=== PATIENT | female | born 1935 | race Caucasian/White ===

== ENCOUNTER 2017-09-20 18:49 | Inpatient (IN) | payer OTHER, BC ==
[~2017-09-20] VITALS: Ht 152.4 cm; Wt 57.1 kg
--- NOTE | ~2017-09-20 | EKG ---
[address] [place] [address] ELECTROCARDIOGRAM REPORT Name: MOISES HAMMOND Room #: 207-P ADM IN M.R.#: [id number] Admission: 09/20/17 Attend Phys: Adeel Flores MD Discharge: Date of : 33 Report #: [id number] THIS REPORT FOR: //name// [facility] ED Test Date: 2017-09-20 Test Time: 19:46:56 Pat Name: MOISES HAMMOND Department: Room: Gender: F Senior Automation Engineer: laura : 1935 Requested By: Pancho Negro Order Number: [id number] MD: Teddy Sparks Measurements Intervals [place] Rate: 91 P: 97 PA: 235 QRS: 74 QRSD: 92 T: 9 QT: 394 QTc: 485 Interpretive Statements Sinus rhythm Prolonged PA interval Borderline T abnormalities Prolonged QT interval Compared to ECG 09/29/2008 08:32:54 First degree AV block now present T-wave abnormality now present Electronically Signed On 09-21-2017 7:52:19 CDT by Teddy Sparks [email or web address] <ELECTRONICALLY SIGNED> By: Teddy Sparks MD, [facility] 09/21/17 0752 1946 45 Teddy Sparks MD, [facility] /EPI
--- NOTE | ~2017-09-20 | HC ---
[facility] [place] [address] CONSULTATION Name: MOISES HAMMOND Room #: 207-P [facility] IN M.R.#: [id number] Admission: 09/20/17 Attend Phys: Adeel Flores MD Discharge: 09/21/17 Date of : 33 Report #: [id number] THIS REPORT FOR: //name// CC: Adeel Flores MD CHIEF COMPLAINT: Right proximal ureteral stone. HISTORY OF PRESENT ILLNESS: The patient is a delightful 82-year-old woman who is being seen today at the request of Dr. Flores for evaluation and management of a right proximal ureteral stone. Specifically, she developed flank pain and nausea yesterday and presented to the hospital. She denies prior history of kidney stones. While hospitalized, however, she has been pain free and required no pain medicine. ALLERGIES: None. ILLNESSES: Diverticulitis, noninsulin dependent diabetes, hypertension, COPD. MEDICATIONS: Spiriva HandiHaler, aspirin 81 mg daily, vitamin D3 400 units daily, Zocor 20 mg at bedtime, fenofibrate 160 mg daily, glimepiride 1 mg daily, metformin 500 mg b.i.d. SOCIAL HISTORY: She smokes a pack and a half of cigarettes a day. She does not drink. REVIEW OF SYSTEMS: No shortness of breath or chest pain. PHYSICAL EXAMINATION: VITAL SIGNS: Her temperature is 36.6, pulse 79, respirations 18, blood pressure 132/59. No respiratory distress. ABDOMEN: Soft, without masses. EXTREMITIES: Well perfused. LABORATORY DATA: White count 13,500, hemoglobin 10.3, hematocrit 30.8, platelets 294,000. Sodium 142, potassium 4.3, chloride 108, BUN 132, creatinine 1.8, calcium is 8.2. Urine is clear yellow, specific gravity is greater than 1.030, 2+ protein, 3+ blood. Microscopic 3-10 red cells, nitrites negative, leukocyte esterase negative, 0-[address] scan shows a 4.2 x 6 mm right proximal ureteral stone with [id number] hydronephrosis. Left kidney is unremarkable. IMPRESSION: Right renal calculus. PLAN: Recommend KUB, to consider if she is a candidate for lithotripsy. Certainly, this can be performed as an outpatient. Given the fact she has pain [address] [place] [address] CONSULTATION Name: MOISES HAMMOND Room #: 207-P [facility] IN M.R.#: [id number] Admission: 09/20/17 Attend Phys: Adeel Flores MD Discharge: 09/21/17 Date of : 33 Report #: [id number] free and afebrile, I think it is safe for her to be discharged and we can arrange followup. By: [id number] Zana Gray MD /nt
[2017-09-20 18:54] VITALS: BP 164/63
[2017-09-20 19:59] LABS: ABSOLUTE NEUTROPHILS 15.6 thou/uL (1.4-8.2); BASOPHILS 0.6 % (0.0-2.0); EOSINOPHILS 0.4 % (0.0-3.0); HEMOGLOBIN 11.6 gm/dL (12.0-15.0); LYMPHOCYTES 5.4 % (24.0-44.0); MCH 29.4 pg (26.0-34.0); MCHC 33.3 g/dL (28.0-37.0); MCV 88.3 fL (80.0-100.0); MONOCYTES 5.1 % (1.0-8.0); PLATELET COUNT 307 thou/uL (150-400); POLYS 88.5 % (36.0-66.0); RBC 3.96 mil/uL (4.20-5.00); WBC 17.6 thou/uL (4.0-11.0)
[2017-09-20 20:18] LABS: ANION GAP 15 mmol/L (7-16); BUN 33 mg/dL (7-18); CALCIUM 9.4 mg/dL (8.5-10.1); CHLORIDE 104 mmol/L (98-107); CO2 21 mmol/L (21-32); CREATININE 1.7 mg/dL (0.6-1.0); GLUCOSE 219 mg/dL (74-106); POTASSIUM 4.1 mmol/L (3.5-5.1); SODIUM 140 mmol/L (136-145)
[2017-09-20 20:22] LABS: ALBUMIN 3.8 g/dL (3.4-5.0); LIPASE 390 U/L (73-393); SGOT 20 U/L (15-37); SGPT 26 U/L (30-65); TOTAL BILIRUBIN 0.3 mg/dL (<0.1-1.0); TOTAL PROTEIN 7.9 g/dL (6.4-8.2); TROPONIN-I <0.06 ng/mL (<0.06)
[2017-09-20 21:33] LABS: URINE BILIRUBIN NEGATIVE (Negative); URINE BLOOD 3+ (Negative); URINE CLARITY CLEAR; URINE COLOR YELLOW; URINE GLUCOSE-RANDOM* TRACE (Negative); URINE KETONES NEGATIVE (Negative); URINE LEUKOCYTES-REFLEX NEGATIVE (Negative); URINE NITRITE-REFLEX NEGATIVE (Negative); URINE PROTEIN (DIPSTICK) 2+ (Negative); URINE SPECIFIC GRAVITY >= 1.030 (1.005-1.035); URINE UROBILINOGEN 0.2 E.U./dl (0.2-1.0)
[2017-09-20 21:57] LABS: SQUAMOUS 0-3 Few /LPF (0-3)
[2017-09-20 21:58] LABS: CASTS None Seen /LPF (None Seen); CRYSTALS None Seen /LPF (None Seen); URINE RBC 3-10 Few /HPF (0-2); URINE WBC-REFLEX 0-5 Rare /HPF (0-5)
[2017-09-20 21:59] LABS: BACTERIA-REFLEX None Seen /HPF (None Seen)
[2017-09-20 22:31] VITALS: BP 125/68
[2017-09-20 22:35] VITALS: BP 127/64
[2017-09-21] MEDS ORDERED: GLUCOPHAGE1000 MG PO (00:20)
[2017-09-21] MEDS ORDERED: FENOFIBRATE160 MG PO (00:22)
[2017-09-21] MEDS ORDERED: GLIMEPIRIDE1 MG PO (00:22)
[2017-09-21] MEDS ORDERED: ZOCOR20 MG PO (00:23)
[2017-09-21] MEDS ORDERED: VITAMIN D3400 UNI2 PO (00:23)
[2017-09-21] MEDS ORDERED: CHILDREN'S ASPI81 M1 PO (00:24)
[2017-09-21] MEDS ORDERED: SPIRIVA INH (00:25)
[2017-09-21 04:18] VITALS: BP 118/57
[2017-09-21 05:44] LABS: HEMATOCRIT 30.8 % (37.0-47.0); HEMOGLOBIN 10.3 gm/dL (12.0-15.0); MCH 29.5 pg (26.0-34.0); MCHC 33.5 g/dL (28.0-37.0); MCV 87.9 fL (80.0-100.0); RBC 3.51 mil/uL (4.20-5.00); WBC 13.5 thou/uL (4.0-11.0)
[2017-09-21 06:01] LABS: CALCIUM 8.2 mg/dL (8.5-10.1); CREATININE 1.8 mg/dL (0.6-1.0); POTASSIUM 4.3 mmol/L (3.5-5.1)
[2017-09-21 07:45] VITALS: BP 122/47
[2017-09-21 11:13] VITALS: BP 113/49
[2017-09-21 15:25] VITALS: BP 132/59
[2017-09-21 19:10] VITALS: BP 132/59
== END 2017-09-21 20:04 | disposition home or self-care (01) | DRG 682 ==
LOC: ER 18:49 → EROBS 21:53 → 2N 21:53
PROVIDERS: Emergency Medicine; Nurse Practitioner Family
DX: N17.0 Acute kidney failure with tubular necrosis (principal); E43 Unspecified severe protein-calorie malnutrition; N20.2 Calculus of kidney with calculus of ureter; K57.92 Diverticulitis of intestine, part unspecified, without perforation or abscess without bleeding; E11.9 Type 2 diabetes mellitus without complications; I10 Essential (primary) hypertension; J44.9 Chronic obstructive pulmonary disease, unspecified; F17.210 Nicotine dependence, cigarettes, uncomplicated; Z79.899 Other long term (current) drug therapy
CPT/HCPCS: 10081

== ENCOUNTER → 2017-10-15 | Outpatient (CLI) | payer OTHER, BC ==
[~2017-10-15] MED LIST: CHILDREN'S ASPI81 M1 PO; FENOFIBRATE160 MG PO; GLIMEPIRIDE1 MG PO; GLUCOPHAGE1000 MG PO; SPIRIVA INH; VITAMIN D3400 UNI2 PO; ZOCOR20 MG PO
== END ==
LOC: RAD 08:18
DX: N20.1 Calculus of ureter (principal); M47.816 Spondylosis without myelopathy or radiculopathy, lumbar region

== ENCOUNTER → 2018-11-08 | Outpatient (CLI) | payer OTHER, BC ==
[2018-11-08 10:14] LABS: EOSINOPHILS 2.6 % (0.0-3.0); HEMATOCRIT 35.8 % (37.0-47.0); HEMOGLOBIN 11.9 gm/dL (12.0-15.0); LYMPHOCYTES 16.6 % (24.0-44.0); MCH 27.1 pg (26.0-34.0); MCHC 33.2 g/dL (28.0-37.0); MCV 81.5 fL (80.0-100.0); MONOCYTES 9.8 % (1.0-8.0); PLATELET COUNT 268 thou/uL (150-400); RBC 4.39 mil/uL (4.20-5.00); RDW 18.5 % (10.5-14.5); WBC 8.6 thou/uL (4.0-11.0)
[2018-11-08 10:31] LABS: CALCIUM 9.2 mg/dL (8.5-10.1); CREATININE 1.5 mg/dL (0.6-1.0); POTASSIUM 4.9 mmol/L (3.5-5.1)
[2018-11-08 10:58] LABS: ANISOCYTOSIS 1+; PLATELET ESTIMATE NORMAL
== END ==
LOC: LAB 09:38 → CAT 09:38
PROVIDERS: Nurse Practitioner
DX: K42.9 Umbilical hernia without obstruction or gangrene (principal); M47.816 Spondylosis without myelopathy or radiculopathy, lumbar region; M51.25 Other intervertebral disc displacement, thoracolumbar region; K57.30 Diverticulosis of large intestine without perforation or abscess without bleeding; N28.1 Cyst of kidney, acquired; I70.0 Atherosclerosis of aorta; M25.78 Osteophyte, vertebrae; I86.2 Pelvic varices

== ENCOUNTER → 2019-05-09 | Outpatient (CLI) | payer OTHER, BC | LOC: RAD 07:25 | DX: D73.89 Other diseases of spleen (principal); I70.90 Unspecified atherosclerosis; Z87.442 Personal history of urinary calculi ==

== ENCOUNTER → 2020-06-25 | Outpatient (CLI) | payer OTHER, BC | LOC: RAD 09:02 | PROVIDERS: ATTEND Specialist | DX: N20.2 Calculus of kidney with calculus of ureter (principal) ==